=== PATIENT | male | born 1955 | race Caucasian/White ===

== ENCOUNTER 2016-09-07 08:03 | Day surgery (SDC) | payer OTHER ==
--- NOTE | ~2016-09-07 | OP ---
Record Of Operation [facility] [address] [place]. [address] NAME: SHIRA AVALOS : 57 STATUS : [facility]#: [id number] AGE: 61 ADM/REG DATE : 09/07/16 MR#: [id number] REPORT SERV DATE: 09/07/16 DICTATED BY: YURI MCCALLUM JR. DATE: 09/07/16 REPORT STATUS : Draft TRANSCRIBED BY: RUTHANN DATE: 09/07/16 DATE OF PROCEDURE: 09/07/2016 SURGEON: Yuri Mccallum M.D. CEMENT DESPATCH OPERATOR: Toma Chawla. PROCEDURE: Excision of subcutaneous tumor of the left side of the neck (3.1 cm). PREOPERATIVE DIAGNOSIS: Subcutaneous tumor of the left side of the neck. POSTOPERATIVE DIAGNOSIS: Subcutaneous tumor of the left side of the neck. ANESTHESIA: General. INDICATIONS: This patient presents with enlarging soft tissue mass of the left side of the neck. Excision is indicated for definitive diagnosis and treatment. FINDINGS: There was a mass measuring 3.1 x 3.2 cm in the subcutaneous tissues extending down to the underlying musculature. It did appear cystic in nature. It was excised completely along with portion overlying skin. No other significant findings were encountered. DESCRIPTION OF PROCEDURE: With adequate general anesthesia, the left side of the neck was prepped and draped sterilely. An elliptical incision was outlined overlying the mass, incision deepened through the dermis. Flaps were raised around the extent of the mass was excised sharply from the surrounding tissues. This was submitted to pathology. Hemostasis was achieved with electrocautery. The wound was closed with subcutaneous 3-0 Monocryl and subcuticular Monocryl. Sterile dressings were applied. The estimated blood loss was 5 mL. He tolerated the procedure well and left the operating room in satisfactory condition. GREGG/RUTHANN Yuri Mccallum Jr., M.D. / [id number] CC: Yuri Mccallum Jr., M.D.
[~2016-09-07 08:03] MED LIST: HALF81 PO; LOP25 PO; NORCO1 TA1 PO; NORV5 PO; PRIN20 PO; SENTAB PO
== END 2016-09-07 12:16 | disposition home or self-care (01) ==
LOC: SDC 08:03
PROVIDERS: Specialist
PROC: 0WB Anatomical Regions, General, Excision (ICD-10-PCS; 2016-09-07)
PROC: 0HQ4XZZ Repair Neck Skin, External Approach (ICD-10-PCS; principal; 2016-09-07 11:45)
DX: L72.0 Epidermal cyst (principal); G50.0 Trigeminal neuralgia; I25.10 Atherosclerotic heart disease of native coronary artery without angina pectoris; Z95.1 Presence of aortocoronary bypass graft; E78.00 Pure hypercholesterolemia, unspecified; F17.210 Nicotine dependence, cigarettes, uncomplicated; Z79.82 Long term (current) use of aspirin; Z79.899 Other long term (current) drug therapy; H91.90 Unspecified hearing loss, unspecified ear; Z90.49 Acquired absence of other specified parts of digestive tract
CPT/HCPCS: 88304; 93005; A9270-GY; J0690; J2250; J2405; J2710; J3010